=== PATIENT | male | born 1960 | race Caucasian/White ===

== ENCOUNTER → 2023-09-25 07:33 | Outpatient (REF) | payer OTHER, SELFPAY ==
[2023-09-25 07:58] VITALS: BP 162/70; BP_SYST 54
== END ==
LOC: RADI 07:33
PROVIDERS: ATTENDING PHYSICIAN Student in an Organized Health Care Education/Training Program
DX: E04.2 Nontoxic multinodular goiter (principal)
CPT/HCPCS: 88172; 88173; 10005; 88177

== ENCOUNTER 2023-11-06 20:52 | Inpatient (IN) | payer OTHER, SELFPAY ==
[2023-11-06] VITALS (7 sets, daily range): BP systolic 133–205; BP diastolic 71–109; PULSE 56–68; BMI 33.4; BMI 33.0
[2023-11-06 17:17] LABS: Glucose - Point of Care 119 mg/dl (70-99)
[2023-11-06 17:36] LABS: Glucose - Point of Care 120 mg/dl (70-99)
[2023-11-06 17:39] LABS: % Basophils 0.9 % (0-2); % Eosinophils 4.3 % (0-6); % Immature Granulocytes 0.3 % (0-0.5); % Lymphocytes 23.3 % (20.5-51.1); % Monocytes 8.5 % (1.7-9.3); % Neutrophils 62.7 % (42.2-75.2); Absolute Basophils 0.1 10^3/uL (0-0.2); Absolute Eosinophils 0.3 10^3/uL (0-0.7); Absolute Lymphocytes 1.3 10^3/uL (1.2-3.4); Absolute Monocytes 0.5 10^3/uL (0.1-0.6); Absolute Neutrophils 3.6 10^3/uL (1.4-6.5); Hemoglobin 15.3 g/dL (13.0-18.0); Mean Corpuscular Hgb 29.3 pg (27.0-31.0); Mean Platelet Volume 10.5 fL (7.4-10.4); Nucleated Red Blood Cells % 0 % (-); Platelet Count 177 10^3/uL (130-400); Red Blood Cell Count 5.23 10^6/uL (4.70-6.10); Red Cell Dist. Width 12.4 % (11.5-14.5); White Blood Cell Count 5.8 10^3/uL (4.8-10.8)
--- NOTE | 2023-11-06 17:41 | ED.CVA ---
History of Present Illness
General
Chief Complaint: CVA/TIA Symptoms
Time Seen by Provider: 11/06/23 17:35
Onset of Stroke Symptoms
Onset of symptoms known: Yes
Date of onset of symptoms: 11/06/23
Time of onset of symptoms: 16:48
Time pt last seen normal is known: Yes
Date last time pt seen normal: 11/06/23
Time last time pt seen normal: 16:47
Travel History
Have you had any contact with someone who has COVID-19?: No
Do you have any symptoms of coronavirus? Fever > 100 degrees, chills, cough, shortness of breath, sore throat, loss of taste or smell, muscle aches, or headache?: No
History of Present Illness
History of Present Illness:
Patient is a 62-year-old male with a history of hypertension as well as AVM with rupture in the past. He presents with right-sided decreased sensation that began acutely around 4:48 PM. Denies weakness. Endorses mild difficulty speaking as well.
No changes in his vision other than baseline deficits from prior bleed. Denies headache or neck pain.
Past History
Past History
ED Past Medical History: HTN and Other (kidney stone)
ED Past Surgical History: Other (brain surgery for avm)
Social History
Tobacco: Non-smoker
Alcohol: None
Drug: None
Personal:
Living: with family
Phy Exam
Physical Exam
Physical Exam:
GENERAL APPEARANCE: NAD, well developed/ well nourished
EYES lids/conjunctiva normal
EARS/NOSE/THROAT Mucous membranes moist, uvula midline without oral pharyngeal erythema, exudate or swelling
HEAD/NECK normocephalic atraumatic, neck is supple.
RESPIRATORY respiratory effort normal, speaks in full sentences, no accessory muscle use. Lungs clear to auscultation without rhonchi, wheezes, rales
CARDIAC Regular rate and rhythm, no edema.
ABDOMINAL Soft, ND/NT. No pulsatile masses on exam, rebound tenderness
MUSCLES/EXTREMITIES No abnormal range of motion, no swelling.
SKIN Warm, pink and dry. No rashes
NEUROLOGICAL Speech is clear and appropriate. Normal level of consciousness. 5/5 strength in all extremities. slightly decreased sensation to light touch to RUE/RLE, no ataxia or dysmetria, CN2-12 intact
PSYCH Normal mood and affect. Judgement/competence is appropriate
NIH Stroke Score
Level of Consciousness: 0 - Alert
LOC questions: 0-Answers both correctly
LOC Commands: 0-Performs both correctly
Best Gaze: 0-Normal
Visual Waters: 0=Normal, no visual loss
Facial palsy: 0=Normal, symmetrical
Motor - Right Arm: 0=No drift 10 seconds
Motor - Left Arm: 0=No drift 10 seconds
Motor - Right Le-No drift 5 seconds
Motor - Left Le-No drift 5 seconds
Limb Ataxia: 0-Absent
Sensation: 1-Mild loss
Best Language: 0-No aphasia
Dysarthria: 0-Normal
Extinction and Inattention: 0-No abnormality
Total Score:: 1
Alteplase Contraindication
Reasons for NON-Treatment with Thrombolytics: Hx intracranial hemorrhage (prior AVM)
Course
Orders/Labs/Results
Orders:
Orders
11/06/23 17:30
Electrocardiogram (*1) Urgent
Reason for Study: Other
Other Reason for Exam: Possible Stroke
Bedside Glucose- Treatment ONCE
Cardiac Monitoring- Treatment ONCE
Vital Signs As Directed
Frequency: Other
Weight As Directed
Frequency: Once
Comment: ZERO STRETCHER SCALE FOR ACCURATE WEIGHT
11/06/23 17:31
EKG- Treatment ONCE
11/06/23 17:32
Complete Blood Count/With Diff Urgent
Comprehensive Metabolic Panel Urgent
PTT Urgent
Prothrombin Time Urgent
Troponin I Urgent
11/06/23 17:41
CT Head W/o Cont STROKE ALERT Urgent
Comment:
Reason For Exam: stroke
11/06/23 20:11
Admit/Transfer Patient As Directed
Co-Sign Provider:
Level of Care: Inpatient admission
Assign to:: Telemetry
Physician / Group: Sher
Diagnosis: CVA
Reason for Telemetry: CVA/TIA
Date to Stop Telemetry: 11/09/23
Time to Stop Telemetry: 11:00
Reason for Hospitalization: CVA
Expected length of stay greater than two midnights?: Yes
ELOS- Estimated Length of Stay in days: 2
I certify the patient meets the requirements for IP care: Yes
Code Status As Directed
Resuscitation Status: Full Code
11/09/23 11:00
DC Protocol for Telemetry ONCE
Abnormal Lab Results
11/06/23 11/06/23 11/06/23
17:16 17:29 17:32
MPV 10.5 H fL
(7.4-10.4)
BUN 26 H mg/dl
(9-20)
Glucose 123 H mg/dl
(70-99)
POC Glucose 119 H mg/dl 120 H mg/dl
(70-99) (70-99)
11/06/23 17:32
11/06/23 17:32
Vital Signs
Initial and Last Documented VS:
Initial Vital Signs
Temp Pulse Resp BP Pulse Ox
97.7 F 75 18 205/109 98
11/06/23 17:12 11/06/23 17:12 11/06/23 17:12 11/06/23 17:12 11/06/23 17:12
Last Documented Vital Signs
Temp Pulse Resp BP Pulse Ox
97.7 F 68 18 133/80 96
11/06/23 17:12 11/06/23 18:30 11/06/23 18:30 11/06/23 18:28 11/06/23 18:30
*Critical Care Note
Total Time (30-74mins, 75-104mins- exclusive of procedures): Not Applicable
ED Attending Note
ED Attending Note
ED Attending Note:
Patient presents to the emergency department with acute onset right-sided changes in sensation as well as dysarthria that is unable to be appreciated on exam. He is not a candidate for thrombolysis given prior AVM with bleeding as well as low NIH
score (1). Stroke alert called.
CT head negative for bleeding or acute process
discussed with Neurologist operations director Dr. Butler
will admit to hospitalist for further stroke workup
-
Portions of this chart may have been created with voice recognition software.� Occasional wrong word or��sound alike� substitutions may have occurred due to the inherent limitations of voice recognition software.
Discharge Plan
Departure
Patient Disposition: Admit
Date of Disposition: 11/06/23
Time of Disposition: 19:42
Admit to: Telemetry
Admit to doctor: Sher
Presentation/result/management discussed w/ accepting MD/DO: Hospitalist
Patient with high blood pressure during this ER visit?: Yes
Condition: Good
Discharge Problem:
Focal sensory loss
Prescriptions:
No Action
lisinopril 10 MG tablet
10 mg PO DAILY
atorvastatin 10 mg tablet
10 mg PO DAILY
pantoprazole 40 mg tablet,delayed release (DR/EC)
40 mg PO DAILY
Referrals:
Neha Mena MD [Family Provider] -
Interventions
Interventions:
*Risk Screen - Suicide Last Done: 11/06/23 17:22
*General Assessment Last Done: 11/06/23 17:22
*Neglect/Abuse Screening Last Done: 11/06/23 17:22
ED- Fall Risk Assessment Last Done: 11/06/23 19:27
ED- Pulmonary Assessment Last Done: 11/06/23 19:27
ED- Neurological Assessment Last Done: 11/06/23 19:27
ED- Cardiac Assessment Last Done: 11/06/23 19:27
Discharge Date and Time
Print Language: AMERICAN
[2023-11-06 17:50] LABS: INR 0.98
[2023-11-06 17:51] LABS: ALT (SGPT) 29 U/L (0-50); APTT 31.6 Sec (23.4-35.0); AST (SGOT) 32 U/L (17-59); Albumin 4.5 g/dl (3.5-5.0); Alkaline Phosphatase 81 U/L (38-126); Blood Urea Nitrogen 26 mg/dl (9-20); Calcium 9.2 mg/dl (8.4-10.2); Carbon Dioxide 25 mmol/L (22-30); Chloride 107 mmol/L (98-107); Estimated Creatinine Clearance 79 ml/min; Glucose 123 mg/dl (70-99); Potassium 3.7 mmol/L (3.5-5.1); Sodium 138 mmol/L (135-145); Total Bilirubin 0.7 mg/dl (0.2-1.3); eGFR > 60.00
[2023-11-06 18:03] LABS: Troponin I < 0.012 ng/ml
--- NOTE | 2023-11-06 20:16 | HPS.HSE ---
Family Physician
-
Family Physician: Neha Mena MD
Chief Complaint
-
Numbness
History of Present Illness
Patient is a 62y R-handed M with PMH significant for cerebral hemorrhage / AVM who presents to ED complaining of numbness and weakness this afternoon. History obtained from patient and family at the bedside. Patient notes that he was feeling
well until about 4:30 PM today when he exited the bathroom and noted numb sensation of his lips and tongue. He did not appreciate any specific laterality to those symptoms. He also noted numbness of the R arm and hand. He states that his 'legs'
felt weak and - again - did not appreciate or cannot recall any specific laterality. He had no numbness of weakness of the LUE.
Patient contacted his and presented to the ED for further evaluation and treatment.
He states that he had some mild blurry vision. No slurred speech. No headache previously; although, he noted a mild L posterior headache during my exam.
Patient denies any recent illness or injury. No recent med changes.
He had an episode of leg weakness / collapse in the shower in June and work-up at that time was unrevealing. No similar episodes since.
Medical History
Past Medical History
Past Medical History: Reports Other
Additional Past Medical History:
AVM / Hemorrhagic CVA
Hypertension
Obesity
Dyslipidemia
GERD
Past Surgical History: Reports Other
Additional Past Surgical History:
Right Parietal Craniotomy / AMV Repair with Clip (06/29/2002) - Dr. Sanders
Social History
Tobacco: Non-smoker
Alcohol: None
Drug: None
Personal:
Living: With Family
Family History
Family History: Other (Mother: CVA / TIA Father: Prostate Cancer)
Allergies / Home Medications
Allergies reflects when Allergies were last updated in [facility].
Home Medications with original date entered in [facility]
Allergy/Medication List:
Allergies
Allergy/AdvReac Type Severity Reaction Status Date / Time
No Known Allergies Allergy Verified 05/20/19 05:40
Home Medications
lisinopril 10 mg tablet 10 mg PO DAILY 05/20/19
atorvastatin 10 mg tablet 10 mg PO DAILY 11/06/23
pantoprazole 40 mg tablet,delayed release 40 mg PO DAILY 11/06/23
Review of Systems
-
History Source: Patient
A 12 point ROS was completed and negative except as noted: Yes
Constitutional: Denies Fever, Fatigue or Chills
EENT: Denies Sore Throat
Respiratory: Denies Cough or Trouble Breathing
Cardiac: Denies Chest Pain or Palpitations
Abdomen/GI: Denies Abdominal Pain, Nausea, Vomiting or Diarrhea
: Denies Dysuria or Frequency
Musculoskeletal: Denies Joint Pain or Edema
Neurological: Reports Headache, Weakness and Numbness; Denies Dizzy
Psych: Denies Depression or Anxiety
Physical Exam
Vital Signs
Vital Signs
Temp Pulse Resp BP Pulse Ox
97.7 F 68 18 133/80 96
11/06/23 17:12 11/06/23 18:30 11/06/23 18:30 11/06/23 18:28 11/06/23 18:30
Physical Exam
General: Other (62y M in no acute distress.)
HEENT: Moist mucous membranes and PERRLA
Respiratory: Clear; No Wheezes, Rales or Rhonchi
Cardiac: S1/S2 and Regular Rhythm; No Murmur
GI: Soft, Non Tender, Non Distended and Normal Bowel Sounds
Musculoskeletal: No Clubbing, No Cyanosis and No Edema
Neuro: AO x 3 and Other (No evidence of sensory deficit by exam. Perhaps minimal strength discrepancy / weakness on the R given that he is R handed. Tongue slightly R of midline on extension.)
Psych: No Anxious or Depressed
Laboratory Results
-
11/06/23 17:32
11/06/23 17:
Laboratory Results
PT 13.0 Sec (11.4-14.6) 11/06/23 17:32
INR 0.98 11/06/23 17:32
APTT 31.6 Sec (23.4-35.0) 11/06/23:
Total Bilirubin 0.7 mg/dl (0.2-1.3) 11/06/23:32
AST 32 U/L (17-59) 11/06/23:
ALT 29 U/L (0-50) 11/06/23:
Alkaline Phosphatase 81 U/L (38-126) 11/06/23:32
Troponin I < 0.012 ng/ml 11/06/23:32
Impression/Plan
-
A/P: Patient is a 62y M with PMH significant for prior ICH secondary to AVM who presents to ED complaining of R sided numbness and weakness since this afternoon.
CVA / TIA
- Admit for further evaluation and treatment.
- Follow for changes in neurologic exam.
- Initial CT done in the ED with no acute changes.
- Check MRI / MRA in the AM.
- Note: patient has documentation from his Neurosurgeon - Dr. Luke Sanders - stating that he is OK for MRI despite clip.
- See scanned notes from 06/24/23 in [facility].
- Neuro evaluation for additional recommendations.
- Hold on ASA, etc for now given prior history.
- Continue statin.
Benign Hypertension
- BP elevated on initial arrival and improved without specific intervention.
- Continue usual lisinopril.
- Hydralazine as needed for very high BPs.
- Goal of normotension on discharge.
Obesity due to Excess Calories
- Affects all aspects of care.
- Encourage healthy diet and increased exercise with goal of weight loss.
DVT Prophylaxis: SCDs
Code Status: Full
--- NOTE | 2023-11-06 21:37 | PTCARENOTE ---
Pt transferred from ED. Pt oriented to unit, call sarah within reach. Will continue with current plan.
[2023-11-06] MEDS: TYLENOL 650 MG PO (22:08)
[2023-11-07] VITALS (8 sets, daily range): BP systolic 122–165; BP diastolic 77–90; PULSE 59–71; O2SAT 97
[2023-11-07 07:36] LABS: Hematocrit 40.9 % (39.0-52.0); Hemoglobin 14.2 g/dL (13.0-18.0); Mean Corp Hgb Conc. 34.7 g/dL (33.0-37.0); Mean Corpuscular Hgb 29.2 pg (27.0-31.0); Mean Platelet Volume 10.5 fL (7.4-10.4); Platelet Count 172 10^3/uL (130-400); Red Blood Cell Count 4.87 10^6/uL (4.70-6.10); Red Cell Dist. Width 12.5 % (11.5-14.5); White Blood Cell Count 5.1 10^3/uL (4.8-10.8)
[2023-11-07] MEDS: ZESTRIL 10 MG PO (07:43)
[2023-11-07] MEDS: PROTONIX 40 MG PO (07:43)
[2023-11-07] MEDS: LIPITOR 10 MG PO (07:43)
[2023-11-07 07:47] LABS: Blood Urea Nitrogen 24 mg/dl (9-20); Calcium 9.2 mg/dl (8.4-10.2); Carbon Dioxide 23 mmol/L (22-30); Chloride 106 mmol/L (98-107); Estimated Creatinine Clearance 86 ml/min; Glucose 102 mg/dl (70-99); HDL Cholesterol 47 mg/dl; LDL Cholesterol, Calculated 47 mg/dl; Potassium 4.3 mmol/L (3.5-5.1); Sodium 137 mmol/L (135-145); Total Cholesterol 113 mg/dl (50-199); Triglyceride 95 mg/dl (10-149); Very Low Density Lipoprotein 19 mg/dl (0-30); eGFR > 60.00
--- NOTE | 2023-11-07 08:08 | W.PN.HOSP.TC ---
Today's Communication/Plan
-
Carotid ultrasound. Echocardiogram. +/- brain MRI after neurology evaluation.
Assessment / Plan
Assessment / Plan
Physical Exam
General: Other (62y M in no acute distress.)
HEENT: Moist mucous membranes and PERRLA
Respiratory: Clear; No Wheezes, Rales or Rhonchi
Cardiac: S1/S2 and Regular Rhythm; No Murmur
GI: Soft, Non Tender, Non Distended and Normal Bowel Sounds
Musculoskeletal: No Clubbing, No Cyanosis and No Edema
Neuro: AO x 3 and Other (No evidence of sensory deficit by exam. Perhaps minimal strength discrepancy / weakness on the R given that he is R handed. Tongue slightly R of midline on extension.)
Psych: No Anxious or Depressed
A/P:
CVA / TIA
- Admited for further evaluation and treatment.
- Follow for changes in neurologic exam.
- Initial CT done in the ED with no acute changes.
- Probably MRI of the brain if neurology recommends. There has been some issues with clearance for the MRI despite below note.
- Note: patient has documentation from his Neurosurgeon - Dr. Luke Sanders - stating that he is OK for MRI despite clip.
- See scanned notes from 06/24/23 in [facility].
- Neuro evaluation for additional recommendations.
- Neurology resumed aspirin
- Continue statin.
-Will order ultrasound of carotids
-Will order echocardiogram as well
-Will follow-up neurology further recommendations
Benign Hypertension
- BP elevated on initial arrival and improved without specific intervention.
- Continue usual lisinopril.
- Hydralazine as needed for very high BPs.
- Goal of normotension on discharge.
Obesity due to Excess Calories
- Affects all aspects of care.
- Encourage healthy diet and increased exercise with goal of weight loss.
DVT Prophylaxis: SCDs
Code Status: Full
Anticipated Discharge: 24 - 48 hours
Subjective/Interval History
-
Date of Service: November 07, 2023
Patient still having some paresthesias. Denies chest pain or shortness of breath.
Objective Data
-
Labs:
Laboratory Results
11/07/23
06:39
WBC 5.1
Hgb 14.2
Hct 40.9
Plt Count 172
Sodium 137
Potassium 4.3
Chloride 106
Carbon Dioxide 23
BUN 24 H
Creatinine 1.0
Glucose 102 H
Calcium 9.2
Vital Signs:
Vital Signs
Temp Pulse Resp BP Pulse Ox
98.1 F 69 18 122/85 97
11/07/23 03:18 11/07/23 03:18 11/07/23 03:18 11/07/23 03:18 11/07/23 03:18
[2023-11-07 08:37] LABS: Glycohemoglobin (HgbA1c) 6.4 % (4.0-5.6)
--- NOTE | 2023-11-07 08:40 | CON.NEURO4 ---
Addendum entered and electronically signed by Neil Abbott MD 11/07/23 15:03:
I saw and evaluated the patient I reviewed the note by Henrietta Faustin agree with the findings the following comments:
62-year-old man with a past medical history of right parietal occipital brain AVM status postcraniotomy and clipping of the lesion, hypertension hyperlipidemia and GERD who presents to hospital with approximately 1 days worth of right hand
paresthesia as well as paresthesia on the lips and tongue, speech change and bilateral leg weakness and walking change that all seem to be an abrupt change from the day previously.
Patient reports no recent head or neck trauma he does not take any antiplatelet at baseline. Normally does not have any headaches but did have headache around 2 days ago that was nonsevere. Yesterday afternoon noted paresthesia in the lips and
tongue as well as right arm and hand paresthesia, he did not notice any overt right hand or arm weakness. He definitely thinks his gait and balance is not his normal self. He and his thinks his speech is also not normal for him. No loss of
consciousness.
Patient did have a CTA of the head in June 2023 did not show any significant vascular abnormalities and did not show any evidence for recurrence of the known right occipital lobe AVM.
Neurologic examination shows some slow speech with decreased fluency some mild dysarthria. No facial asymmetry seen, visual rice are full extraocular moods are normal. There is a very small amount of right arm pronator drift.
CT head noncontrast shows chronic changes from craniotomy and clipping after a right occipital lobe AVM.
Assessment: Based on the clinical history and subtle examination findings patient probably has had an acute ischemic stroke probably of the left hemisphere. Could be cortical or subcortical. Risk factors are hypertension and hyperlipidemia. He
has no previous history of migraines, episode is not consistent with a seizure.
Recommendations
-Pursue goal normotension maintain systolic blood pressure less than 180
-Neurologic checks and NIH stroke scale
-Aspirin 81 mg daily monotherapy
-Continue his home dose of atorvastatin 10 mg daily his LDL is less than goal of 70
-Monitor on cardiac telemetry and check transthoracic echocardiogram
-- Depending on results of echocardiogram may recommend further outpatient cardiac monitoring which is usually started with 1 to 2 weeks of Holter monitor
-Check carotid ultrasound
-Not feeling that he would need to check a repeated CTA of the head given the study in June
-Does not appear that we will be able to obtain brain MRI
-Discussed secondary stroke prevention which would mean improving diet and small amounts consistent aerobic exercise
-Speech physical Occupational Therapy evaluations
Original Note:
Consultation - Neurology 4
-
CONSULTING PHYSICIAN: Dr. Abbott
REFERRING PHYSICIAN: Dr. Olivarez
DICTATED BY: MIS Garrett
DATE/TIME OF REQUEST: 11/06/20232114
DATE/TIME OF CONSULTATION: 11/07/2023, 839
Reason for Consultation: paresthesia
History of Present Illness:
This is a 62 year old right handed male patient with a PMH significant for cerebral hemorrhage / AVM (2001) who presented to ED complaining of numbness and weakness yesterday afternoon 11/06/2023. He reported yesterday he was in his usual state
of health when he noted numbness of lips and tongue while exiting the bathroom. At that time he also noted right arm and hand numbness as well as b/l leg weakness. He also reported transient blurred vision. He reports his feels his speech is
not at baseline. He does report over the past 2 days he has had intermittent headaches. He does state this is unusual as he rarely has headaches. He has not followed with neurosurgery recently for AVM. His PCP in June wanted to perform a MRI
brain, for updated imaging. He does not have documentation of aneurysm clips, despite documentation for from Dr. Sanders he was unable to get MRI. He was able to have CTA Head. He has not had any carotid artery imaging. He does report he may have
had an MRI brain at a free standing facility, he does not remember which facility.
Today he reports symptoms have been persistent, facial and lip numbness, more on the right. He also reports right arm numbness. He denies unilateral weakness, but still does feel that balance is off. He also has noticed some mild changes in
speech. He does not take daily ASA. He does take daily Atorvastatin.
Past Medical History:
AVM / Hemorrhagic CVA
Hypertension
Obesity
Dyslipidemia
GERD
Past Surgical History:
Right Parietal Craniotomy / AMV Repair with Clip (06/29/2002) - Dr. Sanders
Family History:
Mother-stroke/TIA
Social History:
Tobacco: Non-smoker
Alcohol: None
Drug: None
Personal:
Living: With Family
Home Medications: see below
Review of Symptoms:
Patient denies any fever, chest pain, shortness of breath, GI or symptoms. Does report mild headache.
�
Vital Signs:
see below
Physical Exam:
The patient is afebrile, heart sounds S1 and S2 are regular. No dyspnea.
Neurologic Examination:
The patient is awake, alert and oriented x 3. He is able to follow commands and answer questions appropriately. There is mild delayed speech, mild dysarthria. On cranial nerve assessment, pupils are 3 mm bilateral, round and reactive to light and
accommodation. Visual rice are full. Extraocular movements are intact. Facial sensations are intact and bilaterally symmetrical, there is no facial asymmetry. Hearing is intact bilaterally to normal conversation volume. Tongue palate and uvula are
midline. Sternocleidomastoid strengths are full bilaterally. Motor strengths are 5/5 bilateral upper and lower extremities on medical research [place] scale. There is no drift or involuntary movement noted. Deep tendon reflexes are 2+ bilateral
upper and lower extremities and Babinski is absent bilaterally. Sensations of pain, touch, temperature and vibration are intact and bilaterally symmetrical. There was no extinction noted on double simultaneous stimulation. Coordination is intact by
finger to nose bilaterally.
Lab Results: see below
Neuro Imaging:
CT head 11/06/[address] evidence for acute intracranial hemorrhage or transcortical infarct.
2. 3.5 cm region of chronic encephalomalacia in the posteromedial right occipital lobe deep to a right parietal craniotomy which is likely the site of previous arteriovenous malformation surgery (unchanged from 07/11/2023).
07/12/2023-CTA head-No significant vascular occlusion, aneurysm or dissection. Stable posttreatment changes of AVM in the right occipital lobe without evidence for recurrent vascular anomaly.
Impression:
PATRICK MENDOSA is a 62 year old M who has presented to the hospital with right sided paresthesias, difficulty with balance and mild speech changes.
Differentials for the patient's presentation include:
1. acute stroke
2. migraine variant
Recommendations:
-MRI brain if possible, per patient does not have documentation of aneurysm clips-per patient may have had MRI brain since surgery in 2001
-will order repeat CT head
-reviewed CTA head with no occlusion, aneurysm or dissection
-will order CUS
-start ASA 81 mg daily
-LDL 47, continue atorvastatin 10 mg
-HgbA1c 6.4-goal normoglycemia
-goal normotension
-NIHSS and neuro checks per unit guidelines
-PT/OT and speech evaluations and treatment
-can have Tylenol for headaches as needed
Discussed patient care with patient, nursing and neurologist.
Medication and Allergies
Home Medications
Home Medications
�Medication �Instructions �Recorded
lisinopril 10 mg tablet 10 mg PO DAILY 05/20/19
atorvastatin 10 mg tablet 10 mg PO DAILY 11/06/23
pantoprazole 40 mg tablet,delayed 40 mg PO DAILY 11/06/23
release
Allergies
Allergies
Allergy/AdvReac Type Severity Reaction Status Date / Time
No Known Allergies Allergy Verified 05/20/19 05:40
Vital Signs and Labs
-
Vital Signs and Labs:
Vital Signs
Temp Pulse Resp BP Pulse Ox
97.8 F 62 18 134/78 96
11/07/23 07:30 11/07/23 07:30 11/07/23 07:30 11/07/23 07:30 11/07/23 07:30
Lab Results
11/07/23 06:39
11/07/23 06:39
PT 13.0 Sec (11.4-14.6) 11/06/23 17:32
INR 0.98 11/06/23 17:32
APTT 31.6 Sec (23.4-35.0) 11/06/23 17:32
Sodium 137 mmol/L (135-145) 11/07/23 06:39
Potassium 4.3 mmol/L (3.5-5.1) 11/07/23 06:39
BUN 24 mg/dl (9-20) H 11/07/23 06:39
Glucose 102 mg/dl (70-99) H 11/07/23 06:39
Calcium 9.2 mg/dl (8.4-10.2) 11/07/23 06:39
LDL Cholesterol, Calc 47 mg/dl 11/07/23 06:39
[2023-11-07] MEDS: ASPIR LOW (ENTERIC COATED) 81 MG PO (10:24)
--- NOTE | 2023-11-07 11:05 | PTOTSP ---
ST Acute Care Evaluation
Pt presents with some symptoms of possible TIA/CVA as indicated by persistent numbness/tingling in lips, tongue, and mouth/cheeks on right side, change in taste, as well as lingual deviation to right side upon protrusion. Nevertheless, pt presents
with oral and pharyngeal parameters that are within functional limits for safe PO intake of all consistencies.
Pt also communicated some difficulty with articulating his speech sounds as well as some cognitive fuzziness. Nevertheless, pt's speech is completely intelligible to an unfamiliar listener and pt presents with cognitive linguistic function that is
within normal limits, per the SL[facility]MS.
Recommendations:
- Continue with regular solids, thin liquids, and meds as tolerated.
- General aspiration and reflux precautions.
- No skilled [employer] LENS TECHNICIAN services needed at this time. [employer] L[employer] TECHNICIAN to sign off. Please re-consult if needed.
[2023-11-08 03:17] VITALS: BP 121/69
[2023-11-08 06:58] LABS: Hematocrit 40.8 % (39.0-52.0); Hemoglobin 14.5 g/dL (13.0-18.0); Mean Corp Hgb Conc. 35.5 g/dL (33.0-37.0); Mean Corpuscular Hgb 29.4 pg (27.0-31.0); Mean Corpuscular Volume 82.8 fL (80.0-94.0); Mean Platelet Volume 10.2 fL (7.4-10.4); Platelet Count 168 10^3/uL (130-400); Red Blood Cell Count 4.93 10^6/uL (4.70-6.10); Red Cell Dist. Width 12.3 % (11.5-14.5)
--- NOTE | 2023-11-08 07:18 | W.PN.HOSP.TC ---
Today's Communication/Plan
-
Discharge planning today.
Assessment / Plan
Assessment / Plan
Physical Exam
General: Other (62y M in no acute distress.)
HEENT: Moist mucous membranes and PERRLA
Respiratory: Clear; No Wheezes, Rales or Rhonchi
Cardiac: S1/S2 and Regular Rhythm; No Murmur
GI: Soft, Non Tender, Non Distended and Normal Bowel Sounds
Musculoskeletal: No Clubbing, No Cyanosis and No Edema
Neuro: AO x 3 and Other (No evidence of sensory deficit by exam. Perhaps minimal strength discrepancy / weakness on the R given that he is R handed. Tongue slightly R of midline on extension.)
Psych: No Anxious or Depressed
A/P:
CVA / TIA
- Appreciate neurology consult
-Unable to do MRI of the brain but repeated CT scan of the head unremarkable
- Note: patient has documentation from his Neurosurgeon - Dr. Luke Sanders - stating that he is OK for MRI despite clip.
- See scanned notes from 06/24/23 in [facility].
- Neurology recommended aspirin 81 mg daily
- Continue statin.
-Will order ultrasound of carotids and no significant stenosis
-Will order echocardiogram as well and no significant intracardiac abnormality
-Neurology recommend cardiac monitoring as outpatient
-Neurology cleared him for discharge today.
Benign Hypertension
- BP elevated on initial arrival and improved without specific intervention.
- Continue usual lisinopril.
- Hydralazine as needed for very high BPs.
- Goal of normotension on discharge.
Obesity due to Excess Calories
- Affects all aspects of care.
- Encourage healthy diet and increased exercise with goal of weight loss.
DVT Prophylaxis: SCDs
Code Status: Full
Anticipated Discharge: Today
Subjective/Interval History
-
Date of Service: November 08, 2023
Patient feels improving.
Objective Data
-
Labs:
Laboratory Results
11/08/23
06:50
WBC 7.0
Hgb 14.5
Hct 40.8
Plt Count 168
Sodium Pending
Potassium Pending
Chloride Pending
Carbon Dioxide Pending
BUN Pending
Creatinine Pending
Glucose Pending
Calcium Pending
Vital Signs:
Vital Signs
Temp Pulse Resp BP Pulse Ox
98.1 F 64 18 121/69 97
11/08/23 03:17 11/08/23 03:17 11/08/23 03:17 11/08/23 03:17 11/08/23 03:17
I&O
11/07/23 11/08/23 11/09/23
06:59 06:59 06:59
Intake Total 960 / 960
Balance 960 / 960
Review of Systems
-
All other systems: Reviewed and negative
[2023-11-08 07:35] VITALS: BP 115/71
[2023-11-08 08:41] LABS: Blood Urea Nitrogen 24 mg/dl (9-20); Calcium 9.2 mg/dl (8.4-10.2); Carbon Dioxide 25 mmol/L (22-30); Chloride 108 mmol/L (98-107); Estimated Creatinine Clearance 86 ml/min; Glucose 98 mg/dl (70-99); Potassium 4.1 mmol/L (3.5-5.1); Sodium 138 mmol/L (135-145); eGFR > 60.00
[2023-11-08] MEDS: ASPIR LOW (ENTERIC COATED) 81 MG PO (10:01)
[2023-11-08] MEDS: LIPITOR 10 MG PO (10:01)
[2023-11-08] MEDS: PROTONIX 40 MG PO (10:01)
[2023-11-08] MEDS: ZESTRIL 10 MG PO (10:01)
--- NOTE | 2023-11-08 11:27 | W.PN.NEURO.1 ---
Today's Communication / Plan
-
-Reasonable pursue 1 to 2 weeks of outpatient cardiac Holter monitoring although suspicion for cardioembolic stroke is not high
-Can continue his existing dose 10 mg atorvastatin
-Aspirin 81 mg daily
-Encourage weight loss exercise vascular health measures
-Would delay any type of endoscopy/colonoscopy that is not urgent for at least 6 to 9 months after stroke
-Anticipate he would be off of work for probably 4 weeks for recovery
-Asked that he not drive for 1 week after discharge until improved
-No further workup or monitoring felt necessary no barriers to discharge needs neurology follow-up in 4 to 6-weeks
Neuro Assessment/Plan
Assessment
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
Had around 2 days of unusual headache not typical for him as he does not get headaches hardly at all. Then had development of facial and oral paresthesia as well as paresthesia on the right arm and hand, additionally bilateral minimal lower
extremity weakness as well as walking difficulty and dysarthria.
Presumed has had a small ischemic stroke probably of the left hemisphere, could be subcortical area given no cortical signs of aphasia hemianopia or neglect, not able to entirely rule out a cortical stroke to the left hemisphere.
Not able to obtain brain MRI due to constraints around the AVM clip,
Transthoracic echocardiogram with no thrombus no significant valvular dysfunction has LVH
Carotid ultrasound not showing any significant stenosis
CTA of the head done in June did not show any intracranial stenosis or reemergence of AVM
No concern that the set of symptoms represented a seizure at the time course is not correct for such a diagnosis. Migraine would also not be an appropriate diagnosis.
Most likely etiology is probably small vessel disease or atheroembolic, less likely that this is cardioembolic stroke given largely unremarkable transthoracic echocardiogram and risk factors of hypertension hyperlipidemia and obesity.
Subjective/Objective
Subjective Data
Date of Service: November 08, 2023
No acute events, patient not feeling 100% but improving, feels speech and walking improving
Objective Data
Vital Signs
Temp Pulse Resp BP Pulse Ox
98.2 F 60 20 115/71 98
11/08/23 07:35 11/08/23 07:35 11/08/23 07:35 11/08/23 07:35 11/08/23 07:35
Lab Results
11/08/23 06:50
11/08/23 06:50
PT 13.0 Sec (11.4-14.6) 11/06/23 17:32
INR 0.98 11/06/23 17:32
APTT 31.6 Sec (23.4-35.0) 11/06/23 17:32
Sodium 138 mmol/L (135-145) 11/08/23 06:50
Potassium 4.1 mmol/L (3.5-5.1) 11/08/23 06:50
BUN 24 mg/dl (9-20) H 11/08/23 06:50
Glucose 98 mg/dl (70-99) 11/08/23 06:50
Calcium 9.2 mg/dl (8.4-10.2) 11/08/23 06:50
LDL Cholesterol, Calc 47 mg/dl 11/07/23 06:39
Patient Allergies
No Known Allergies Allergy (Verified 05/20/19 05:40)
LDL Level: <70, continue statin
Review of Systems
-
History Source: Patient
All other systems: Reviewed and negative
Constitutional: No Symptoms
EENT: No Symptoms Reported
Respiratory: No Symptoms
Cardiac: No Symptoms
Abdomen/GI: No Symptoms
Genitourinary: No Symptoms
Musculoskeletal: No Symptoms
Skin: No Symptoms
Neuro: Headache, Numbness, Ataxia and Speech Problem
Endocrine: No Symptoms
Hematologic / Lymphatic: No Symptoms
Allergy / Immunology: No Symptoms
Physical Exam
-
General: Comfortable and Appears Stated Age
Eyes: No Ptosis
HEENT: Normocephalic
Neck: No Bruits Bilaterally
Respiratory: Clear to Auscultation
Cardiac: Regular Rhythm
GI: Normal Bowel Sounds
Skin: Unremarkable
Extremities: No Clubbing
Psych: Unremarkable
Extended Neurological Exam
Mood & Affect: Mood Unremarkable and Affect Unremarkable
Attention Span & Concentration: Awake, Alert and Interactive
Memory: Unremarkable
Tremor: Hand Tremor Absent
Involuntary Movement: None
Speech: Quality Unremarkable, Quantity Unremarkable and Dysarthric; Negative Expressive Aphasia or Receptive Aphasia
Cranial Nerve II: Left Eye: Pupillary Reactivity Unremarkable, Pupillary Size Unremarkable and Visual Waters Intact
Cranial Nerve II: Right Eye: Pupillary Reactivity Unremarkable, Pupillary Size Unremarkable and Visual Waters Intact
Cranial Nerves III, IV, : Extraocular Movement: Extraocular Movement Full in all Directions
Cranial Nerve VII: Facial Symmetry: Normal Facial Symmetry
Muscle Strength, Overall: Full Throughout
Pronator Drift: Drift in Right Upper Extremity
Deep Tendon Reflexes: Trace Throughout
Cold Sensation: Unremarkable
Vibration Sensation: Unremarkable
Touch Sensation: Unremarkable
Coordination: [id number] Testing Unremarkable
Gait & Station: Up from Seated Without Problem and Other (Independent, careful); Negative Wide Based
Data Reviewed
-
CT-A: Report Reviewed and Image Reviewed
CT Head: Report Reviewed and Image Reviewed
Carotid Ultrasound: Report Reviewed
Echocardiogram: Report Reviewed
Labs: Report Reviewed
[2023-11-08 11:28] VITALS: BP 137/80; BP 143/83; PULSE 55; PULSE 61
--- NOTE | 2023-11-08 12:24 | W.DCSUMMARY ---
Discharge Summary
Discharge Data
Date of Admission: 11/06/23
Date of Discharge: 11/08/23
-
Pending Results: No
Hospital Course
Patient is 62 years old male who has history of cerebral hemorrhage in the past due to AVM status post postcraniotomy and clipping of the lesion, hypertension, hyperlipidemia presented to the hospital with right hand paresthesias and paresthesias of
the lips and tongue as well as speech difficulties and leg weakness and ataxia. Neurology was consulted. Patient's symptoms were consistent with acute stroke. He had a CT scan of the head and then repeated 24 hours later without significant
abnormalities. We were planning on doing a brain MRI but due to difficulties clearing him for that particular test and also since he was doing better neurology did not feel necessary at the moment but also unable to do. Patient had ultrasound of
carotids with no significant stenosis and also echocardiogram with no significant abnormalities intracardiac. Neurology recommended cardiac monitoring as outpatient. Otherwise, patient is neurologically improved. He participated with PT and OT
and speech pathology. Neurology cleared him for discharge today.
Discharge duration: 35 minutes
Discharge Plan
-
Patient Disposition: Home (Routine Discharge)
Discharge Diagnosis/Procedures: Acute stroke. 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 Hypertension. Dyslipidemia.
Diet: Low Cholesterol
Activity: As tolerated
Driving Restrictions: No driving for 1 week
Blood Work: Please PCP to order CBC, BMP within 1 week
Referrals:
Chaz Butler MD [Active] - in two to four weeks
Neha Mena MD [Family Provider] - in less than 1 week
Prescriptions:
New
aspirin 81 mg Tablet,Delayed Release (Dr/Ec)
81 mg PO DAILY 30 Days Qty: 30 0RF
Continued
lisinopril 10 MG tablet
10 mg PO DAILY
atorvastatin 10 mg tablet
10 mg PO DAILY
pantoprazole 40 mg tablet,delayed release (DR/EC)
40 mg PO DAILY
Discharge Orders:
Discharge Patient (As Directed); Ordered 11/08/23
Ordered By: Estiven Hassan
Discharge Date and Time
Print Language: KYRGYZ
--- NOTE | 2023-11-08 13:04 | CM ---
Met with patient at bedside; initial assessment completed
Pharmacy verified: [facility]
Patient reported he and his spouse live in a [place] with basement; 1 step to enter; 12 steps down to basement; railings on stairs; Bathroom has tub with shower
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
SNF/Rehab/Home Health utilization history: none
Transportation: or other family member will provide ride home
PT recommended outpatient therapy; [place] Text sent to Attending to request a script for outpatient PT
Plan: discharge to home today
== END 2023-11-08 14:46 | disposition home or self-care (01) | DRG 66 ==
LOC: 4 WEST ACU 20:52
PROVIDERS: ADMITTING PHYSICIAN Hospitalist; ATTENDING PHYSICIAN Hospitalist; EMERGENCY PHYSICIAN Emergency Medicine; FAMILY PHYSICIAN Student in an Organized Health Care Education/Training Program; OTHER PHYSICIAN Student in an Organized Health Care Education/Training Program
DX: I63.89 Other cerebral infarction (principal); I10 Essential (primary) hypertension; E66.09 Other obesity due to excess calories; E78.5 Hyperlipidemia, unspecified; K21.9 Gastro-esophageal reflux disease without esophagitis; Z68.33 Body mass index [BMI] 33.0-33.9, adult; Z79.899 Other long term (current) drug therapy; Z86.73 Personal history of transient ischemic attack (TIA), and cerebral infarction without residual deficits; Z82.3 Family history of stroke
CPT/HCPCS: 70450; 80048; 80053; 80061; 82962; 83036; 84484; 85025; 85027; 85610; 85730; 92523; 92610; 93005; 93306; 93880; 97162; 97167; 99285

== ENCOUNTER → 2023-12-26 09:37 | Outpatient (REF) | payer OTHER, SELFPAY | LOC: RCS 09:37 | PROVIDERS: ATTENDING PHYSICIAN Internal Medicine Cardiovascular Disease; FAMILY PHYSICIAN Student in an Organized Health Care Education/Training Program | DX: R06.09 Other forms of dyspnea (principal); E78.00 Pure hypercholesterolemia, unspecified; I10 Essential (primary) hypertension | CPT/HCPCS: 93017 ==

== ENCOUNTER → 2023-12-31 07:06 | Day surgery (SDC) | payer OTHER, SELFPAY ==
[2023-12-31 07:45] VITALS: BMI 33.8
--- NOTE | 2023-12-31 10:19 | ITS.CL.IMPLP ---
[employer] [facility] - Implant Loop
Implant Loop
Procedure Report:
Procedure: Insertion of Loop Recorder.�
Date of the procedure: 12/31/2023
Procedure Physician: John Bauer MD [facility]
Indication: Cryptogenic stroke
Description of the procedure:
Patient was brought to the holding area after informed consent was obtained from the patient. The time-out was performed immediately before the procedure.
The left parasternal chest area was prepped and draped in sterile fashion with chlorhexidine prep x 3 times. Lidocaine 1% was injected subcutaneously for local anesthesia. The loop recorder was tunneled and then injected into the subcutaneous
tissue. The tunneling tool was removed leaving the loop recorder in place. The dermis was closed with 40 monocryl suture and steristrips and a pressure Tegaderm dressing was placed. There were no immediate complications.
Post procedure, the device was interrogated and showed good detectable P and R waves.
There were no immediate complications.
Device:
LINQII; Model: [id number]; Serial #:[id number]
R wave amplitude: 0.45 mV
Final Programming:
��������������� Tachycardia Detection: >182 bpm for 16 beats
��������������� Bradycardia Detection: 30 bpm for 12 beats, Asystole for 5 seconds.
��������������� Atrial fibrillation detection: On with > 10 min duration
Conclusion:
Successful insertion of loop recorder.
Recommendation:
Routine post-insert loop care.
== END | disposition home or self-care (01) ==
LOC: CATH 07:06
PROVIDERS: ATTENDING PHYSICIAN Internal Medicine Cardiovascular Disease; FAMILY PHYSICIAN Student in an Organized Health Care Education/Training Program; OTHER PHYSICIAN Internal Medicine Cardiovascular Disease
DX: Z09 Encounter for follow-up examination after completed treatment for conditions other than malignant neoplasm (principal); Z86.73 Personal history of transient ischemic attack (TIA), and cerebral infarction without residual deficits; R06.09 Other forms of dyspnea; I10 Essential (primary) hypertension; E78.00 Pure hypercholesterolemia, unspecified; K21.9 Gastro-esophageal reflux disease without esophagitis; Z79.82 Long term (current) use of aspirin; Z79.02 Long term (current) use of antithrombotics/antiplatelets
CPT/HCPCS: 93312; 93320; 93325; 33285; C1764

== ENCOUNTER → 2024-01-22 10:08 | Outpatient (REF) | payer OTHER, SELFPAY | LOC: RAD 10:08 | PROVIDERS: ATTENDING PHYSICIAN Physician Assistant | DX: R04.2 Hemoptysis (principal) | CPT/HCPCS: 71046 ==

== ENCOUNTER → 2024-05-28 06:25 | Day surgery (SDC) | payer OTHER, SELFPAY | LOC: GI 06:25 | PROVIDERS: ATTENDING PHYSICIAN Internal Medicine Gastroenterology | DX: Z12.11 Encounter for screening for malignant neoplasm of colon (principal); K64.8 Other hemorrhoids; K57.30 Diverticulosis of large intestine without perforation or abscess without bleeding; K21.9 Gastro-esophageal reflux disease without esophagitis; R13.10 Dysphagia, unspecified; D12.2 Benign neoplasm of ascending colon; K63.5 Polyp of colon; K29.70 Gastritis, unspecified, without bleeding; Z86.0100 Personal history of colon polyps, unspecified | CPT/HCPCS: 45385; 45380; 43239; 88305; 88342 ==

== ENCOUNTER 2024-07-26 03:37 | Emergency (ER) | payer OTHER, SELFPAY ==
[2024-07-26 03:41] VITALS: BP 202/101; BMI 34.5
--- NOTE | 2024-07-26 03:43 | ED.GENMED ---
History of Present Illness
General
Chief Complaint: Chest Pain
Time Seen by Provider: 07/26/24 03:43
History of Present Illness
History of Present Illness:
TIME OF INITIAL ENCOUNTER: 3:40 AM
HPI: At about 1:40 AM, the patient was awakened by right-sided chest discomfort. He cannot qualify what it feels like other than saying that it is 'pain'. He never had any associated diaphoresis or shortness of breath. He has no exertional
symptoms. He states that he did go to a [employer] which is not normal for him this past evening. He did not take his blood pressure medication yesterday but did take his blood pressure medication early this morning.
EXAM:
GENERAL: Well appearing but in mild distress, athletic build
HEENT: Moist oral mucosa
CARDIOVASCULAR: No murmurs, normal heart rate, regular rhythm, No chest wall tenderness
PULMONARY: No respiratory distress, breath sounds are clear and equal
ABDOMEN: Soft with no peritoneal signs, no tenderness
NEUROLOGIC: Excellent strength all extremities, no coordination deficits
PSYCHIATRIC: Appropriate mental status, normal insight and judgement
EXTREMITIES: Nontender, no edema, moves all extremities equally
SKIN: No rash, no lesions
NUMBER AND COMPLEXITY OF PROBLEMS ADDRESSED AT THE ENCOUNTER
� Chronic conditions affecting care: High blood pressure and high cholesterol. History of intracranial hemorrhage related to AVM. Denies family history of premature coronary disease, denies smoking history, denies diabetes
� Acute Exacerbation and/or Progression of Chronic Illness: This is an acute problem
� Differential Diagnosis includes: GERD, ACS, costochondritis, pneumothorax, pericarditis, chest wall pain
AMOUNT AND/OR COMPLEXITY OF DATA TO BE REVIEWED AND ANALYZED
� I performed an independent evaluation of and my interpretation is:
EKG: Sinus 60, leftward axis deviation, nonspecific ST abnormality
CT: CTA chest negative for dissection, distended gallbladder with gallstones noted
X-rays: Chest x-ray unremarkable
Laboratory Studies: CBC and chemistries unremarkable, initial troponin less than 0.012
Other: I reviewed ultrasound report
� Review of other/old records: The patient was admitted here in October 2023 with right hand paresthesias
� Clinical information was obtained by an independent historian: None needed
� Prescriptions/Medications Considered but not given:
� Further testing considered but not performed:
RISK OF COMPLICATIONS AND/OR MORBIDITY OR MORTALITY OF PATIENT MANAGEMENT
� Social determinants of health affecting care: Lives at home
� Discussion with other providers: Notified workup with Dr. Kendall, covering for general surgery at 6:40 AM
� Escalation of care including admission/observation vs risk of discharge considered: Patient presents with 2 hours of chest pain on the right side. Initial EKG unremarkable. Will check troponin.
ANY OTHER UPDATES:
On reassessment at 4:20 AM, the patient appears fairly comfortable. He does have some discomfort into the back and symptoms came on suddenly and he is hypertensive�will obtain CTA to evaluate for aortic dissection.
5:15 AM: The patient was given Toradol and then started vomiting. He now feels some improvement regarding chest discomfort. He declines Zofran. CTA negative for dissection but does show distended gallbladder with gallstones. However white count
and LFTs are unremarkable. BP has improved.
6:45 AM: Appears more comfortable, doubt cardiac etiology. Biliary colic versus cholecystitis still a possibility. Also sent prescription for narcotic to his pharmacy.
Past History
Past History
ED Past Medical History: HTN and Other (kidney stone)
ED Past Surgical History: Other (brain surgery for avm)
Social History
Tobacco: Non-smoker
Alcohol: None
Drug: None
Personal:
Living: with family
Phy Exam
Physical Exam
Physical Exam:
See HPI
Scores
Heart Score for Chest Pain Patients
STEMI patient?: Not applicable
Course
Orders/Labs/Results
Orders:
Orders
07/26/24 03:38
Electrocardiogram (*1) Urgent
Reason for Study: Chest Pain
Cardiac Monitoring- Treatment ONCE
EKG- Treatment ONCE
IV Insert/Care/Rem.- Treatment PRN
O2 Therapy [RESP] Urgent
Titrate/Wean O2 to maintain O2 sat greater than (%): 90
Special Instructions: Maintain sats >/=90%
Pulse Ox/spot Check [RESP] Urgent
Quantity: 1
Special Instructions: ON ROOM AIR
07/26/24 03:49
Complete Blood Count/With Diff Urgent
Comprehensive Metabolic Panel Urgent
Lipase Urgent
Comment: ADD ON
Troponin I Urgent
07/26/24 03:50
Lisinopril [Zestril] 10 mg PO NOW STA
CR Chest - 2 Views Urgent
Comment:
Reason For Exam: R CP
07/26/24 04:05
CT Chest Angio W/wo Iv Contras Urgent
Comment:
Reason For Exam: abrupt chest / back pain high BP
07/26/24 04:55
Ketorolac [Toradol] 15 mg IV NOW STA
07/26/24 04:56
EKG- Treatment ONCE
07/26/24 05:18
US Abdomen Complete/Upper Urgent
Comment:
Reason For Exam: abnormal GB on CT
07/26/24 05:20
Add On- LAB Urgent
Tests Added?: lipase
07/26/24 06:00
Electrocardiogram (*1) Urgent
Reason for Study: Chest Pain
07/26/24 06:09
Troponin I Urgent
Abnormal Lab Results
07/26/24
03:49
Absolute Monos (auto) 0.7 H 10^3/uL
(0.1-0.6)
Lymphocytes % 17.1 L %
(20.5-51.1)
Monocytes % 10.1 H %
(1.7-9.3)
BUN 26 H mg/dl
(9-20)
Glucose 119 H mg/dl
(70-99)
07/26/24 03:49
07/26/24 03:49
Vital Signs
Blood pressure: 174/90
Initial and Last Documented VS:
Initial Vital Signs
Temp Pulse Resp BP Pulse Ox
36.9 C 60 18 202/101 99
07/26/24 03:41 07/26/24 03:41 07/26/24 03:41 07/26/24 03:41 07/26/24 03:41
Last Documented Vital Signs
Temp Pulse Resp BP Pulse Ox
36.9 C 65 25 141/93 96
07/26/24 03:41 07/26/24 06:30 07/26/24 06:30 07/26/24 06:06 07/26/24 06:30
*Critical Care Note
Total Time (30-74mins, 75-104mins- exclusive of procedures): Not Applicable
ED Attending Note
-
Portions of this chart may have been created with voice recognition software.� Occasional wrong word or��sound alike� substitutions may have occurred due to the inherent limitations of voice recognition software.
Discharge Plan
Departure
Patient Disposition: Home (Routine Discharge)
Date of Disposition: 07/26/24
Time of Disposition: 06:45
Patient with high blood pressure during this ER visit?: Yes
Discharge Problem:
Chest pain
Instructions: Gallstones, Chest Pain CBC Follow Up
Prescriptions:
New
oxycodone 5 mg tablet
5 - 10 mg PO Q6H PRN (Reason: Pain) Qty: 14 0RF
No Action
lisinopril 10 MG tablet
10 mg PO DAILY
atorvastatin 10 mg tablet
40 mg PO DAILY
pantoprazole 40 mg tablet,delayed release (DR/EC)
40 mg PO DAILY
aspirin 81 mg Tablet,Delayed Release (/Ec)
81 mg PO DAILY 30 Days Qty: 30 0RF
Referrals:
Neha Mena MD [Family Provider] -
Yuval London MD [Active] - Follow up in 2-3 days
Elpidio Cesar MD [Active] - Follow up in 2-3 days
Activity Restrictions/Additional Instructions:
I spoke to Dr. Kendall, covering for general surgery tonight. He agrees that he should be seen by general surgeon as an outpatient. I have given you the name of a local general surgeon, Dr. London. EKGs and 2 cardiac blood tests have been normal.
I also recommend he follow-up with Dr. Cesar, cardiology.
Interventions
Interventions:
*Risk Screen - Suicide Last Done: 07/26/24 03:41
*General Assessment Last Done: 07/26/24 03:41
*Neglect/Abuse Screening Last Done: 07/26/24 03:41
ED- Fall Risk Assessment Last Done: 07/26/24 04:07
*ED COVID-19 Vaccine History Last Done: 07/26/24 03:41
ED- Cardiac Assessment Last Done: 07/26/24 04:07
Discharge Date and Time
Print Language: BOLIVIAN
[2024-07-26] MEDS: ZESTRIL 10 MG PO (04:01)
[2024-07-26 04:05] LABS: % Eosinophils 4.3 % (0-6); % Immature Granulocytes 0.3 % (0-0.5); % Lymphocytes 17.1 % (20.5-51.1); % Monocytes 10.1 % (1.7-9.3); % Neutrophils 67.2 % (42.2-75.2); Absolute Basophils 0.1 10^3/uL (0-0.2); Absolute Eosinophils 0.3 10^3/uL (0-0.7); Absolute Lymphocytes 1.2 10^3/uL (1.2-3.4); Absolute Monocytes 0.7 10^3/uL (0.1-0.6); Absolute Neutrophils 4.7 10^3/uL (1.4-6.5); Hematocrit 44.1 % (39.0-52.0); Hemoglobin 15.3 g/dL (13.0-18.0); Mean Corp Hgb Conc. 34.7 g/dL (33.0-37.0); Mean Corpuscular Hgb 29.3 pg (27.0-31.0); Mean Corpuscular Volume 84.5 fL (80.0-94.0); Mean Platelet Volume 10.4 fL (7.4-10.4); Nucleated Red Blood Cells % 0 % (-); Platelet Count 158 10^3/uL (130-400); Red Blood Cell Count 5.22 10^6/uL (4.70-6.10); Red Cell Dist. Width 12.4 % (11.5-14.5)
[2024-07-26 04:20] LABS: ALT (SGPT) 41 U/L (0-50); AST (SGOT) 28 U/L (17-59); Albumin 4.5 g/dl (3.5-5.0); Alkaline Phosphatase 80 U/L (38-126); Blood Urea Nitrogen 26 mg/dl (9-20); Carbon Dioxide 30 mmol/L (22-30); Chloride 103 mmol/L (98-107); Estimated Creatinine Clearance 79 ml/min; Glucose 119 mg/dl (70-99); Potassium 3.7 mmol/L (3.5-5.1); Sodium 141 mmol/L (135-145); Total Bilirubin 0.6 mg/dl (0.2-1.3); Total Protein 6.7 g/dl (6.3-8.2); eGFR > 60.00
[2024-07-26 04:38] LABS: Troponin I < 0.012 ng/ml
[2024-07-26 04:53] VITALS: BP 197/102
[2024-07-26] MEDS: TORADOL 15 MG IV (04:59)
[2024-07-26 05:00] VITALS: BP 173/108
[2024-07-26 05:58] LABS: Lipase 108 U/L (23-300)
[2024-07-26 06:06] VITALS: BP 141/93
[2024-07-26 06:45] LABS: Troponin I < 0.012 ng/ml
[2024-07-26 07:00] VITALS: BP 146/89
== END 2024-07-26 07:22 | disposition home or self-care (01) ==
LOC: EMR 03:37
PROVIDERS: EMERGENCY PHYSICIAN Emergency Medicine; FAMILY PHYSICIAN Student in an Organized Health Care Education/Training Program
DX: R07.89 Other chest pain (principal); I10 Essential (primary) hypertension
CPT/HCPCS: 99285; 96374; 71046; 71275; 76700; 80053; 83690; 84484; 85025; 93005; Q9967

== ENCOUNTER 2024-10-31 08:16 | Emergency (ER) | payer OTHER, SELFPAY ==
[2024-10-31 08:20] VITALS: BP 109/75
--- NOTE | 2024-10-31 09:49 | ED.GENMED ---
History of Present Illness
General
Chief Complaint: Musculo-Skeletal Complaint
Source: patient
Time Seen by Provider: 10/31/24 08:51
History of Present Illness
History of Present Illness:
63-year-old male with past medical history of CVA, hypertension, hyperlipidemia presenting to the emergency department for evaluation of left-sided lower back pain and numbness to the left lateral thigh that has been gradually worsening over the
last week, today worse prompting him to come to the ER for further evaluation. Taken Tylenol intermittently with some relief but states the pain never fully subsided. Patient does state that laying flat seems to make the pain worse. 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 Patient denies any focal weakness or numbness, bowel or urinary incontinence, saddle anesthesia, fevers or infectious symptoms, abnormal weight loss
or weight gain, history of IV drug abuse or any other concerns.
Past History
Past History
ED Past Medical History: CVA, HTN and Other (kidney stone)
ED Past Surgical History: Other (brain surgery for avm)
Social History
Tobacco: Non-smoker
Alcohol: None
Drug: None
Personal:
Living: with family
Review of Systems
Review of Systems
All Other Systems: ROS reviewed and negative except as documented in HPI and ROS
Phy Exam
Physical Exam
Physical Exam:
GENERAL: Alert , in no apparent distress
HEAD: Normocephalic atraumatic
EYE: clear conjunctiva b/l
NECK: Supple
ENT: mmm.
ABDOMEN: Soft, without focal tenderness, no r/g, no cvat
BACK: Normal range of motion, generalized tenderness around the left sacroiliac region, no midline bony tenderness, no rashes
NEUROLOGICAL: Alert and oriented, no focal neuro deficits. Patellar deep tendon reflexes intact and equal bilaterally, sensation grossly intact and equal to light touch bilateral lower extremities except on the left lateral portion of the thigh
patient does report diminished sensation compared to the right. Negative straight leg raise b/l
SKIN: Warm and dry, skin intact.
MUSCULOSKELETAL: No edema, well perfused. EHL intact bilaterally
PSYCH: Normal and appropriate interaction.
Scores
Heart Failure Risk
Heart Failure Risk Score: Not Applicable
Heart Score for Chest Pain Patients
STEMI patient?: Not applicable
Withdrawal Assessment of Alcohol
Withdrawal Assessment Completed?: Not applicable
Course
Orders/Labs/Results
Orders:
Orders
10/31/24 09:22
CR Lumbar Spine Comp Min 4 Vw* Urgent
Comment:
Reason For Exam: left lower back pain
10/31/24 10:18
Ketorolac [Toradol] 60 mg IM NOW STA
Vital Signs
Initial and Last Documented VS:
Initial Vital Signs
Temp Pulse Resp BP Pulse Ox
97.6 F 75 18 109/75 98
10/31/24 08:20 10/31/24 08:20 10/31/24 08:20 10/31/24 08:20 10/31/24 08:20
Last Documented Vital Signs
Temp Pulse Resp BP Pulse Ox
97.6 F 75 18 109/75 98
10/31/24 08:20 10/31/24 08:20 10/31/24 08:20 10/31/24 08:20 10/31/24 08:20
MDM/Problems Addressed
Differential Diagnosis Includes:
Sciatica, disc herniation/nerve impingement, I do not have concern for infectious etiology
MDM/Problems Addressed:
63-year-old male presenting to the ER for evaluation of gradually worsening left lower back pain and numbness/paresthesia in the left lateral thigh. Intermittent relief with Tylenol. Pain worse today prompting him to come to the ER. Denies any
history of similar. Suspect sciatica/disc herniation/nerve impingement to be the most likely diagnoses. Explained to patient that we are unable to obtain MRI here at this facility but would be able to obtain an x-ray to further evaluate. Offered
pain medicine here in the ER but patient initially declined. Plan to initiate patient on a steroid taper, muscle relaxant and anti-inflammatories at home. Recommend close follow-up with orthopedist/pain management for further evaluation and
potential treatment. May require physical therapy or other intervention for additional pain relief.
*Radiology
Radiology exam reviewed: preliminary read by ED provider (Degenerative changes most pronounced from L4-S1)
*Pulse Oximetry
Patient hypoxic: no
*Critical Care Note
Total Time (30-74mins, 75-104mins- exclusive of procedures): Not Applicable
Patient Management
Escalation/DeEscalation of care consider admission/obs:
X-ray with degenerative changes at L4 and L5, L5 and S1. Discussed these results with patient's and encouraged the patient to follow-up with primary care provider as well as provided with information for Ortho and pain management. Medications for
sciatica/radiculopathy provided including a Medrol Dosepak and muscle relaxer. Patient aware of return precautions to the ER.
ED Attending Note
-
Portions of this chart may have been created with voice recognition software.� Occasional wrong word or��sound alike� substitutions may have occurred due to the inherent limitations of voice recognition software.
Discharge Plan
Departure
Patient Disposition: Home (Routine Discharge)
Date of Disposition: 10/31/24
Time of Disposition: 10:15
Patient with high blood pressure during this ER visit?: No
Discharge Problem:
Acute left lumbar radiculopathy
Instructions: Low back pain - Discharge instructions
Prescriptions:
New
methylprednisolone [Medrol (Ra)] 4 mg tablets,dose pack
4 mg PO DIRECTED Qty: 21 0RF
baclofen 10 mg tablet
10 mg PO BID Qty: 10 0RF
No Action
lisinopril 10 MG tablet
10 mg PO DAILY
atorvastatin 10 mg tablet
40 mg PO DAILY
pantoprazole 40 mg tablet,delayed release (DR/EC)
40 mg PO DAILY
aspirin 81 mg Tablet,Delayed Release (Dr/Ec)
81 mg PO DAILY 30 Days Qty: 30 0RF
oxycodone 5 mg tablet
5 - 10 mg PO Q6H PRN (Reason: Pain) Qty: 14 0RF
Referrals:
Jc Lopez MD [Active] - (Pain Management)
Britany Castillo DO [Active] - (Ortho)
Neha Mena MD [Family Provider] -
Interventions
Interventions:
*Risk Screen - Suicide Last Done: 10/31/24 08:20
*General Assessment Last Done: 10/31/24 10:53
*Neglect/Abuse Screening Last Done: 10/31/24 10:53
*ED- Fall Risk Assessment Last Done: 10/31/24 10:53
*ED COVID-19 Vaccine History Last Done: 10/31/24 10:53
*Nursing Disposition Last Done: 10/31/24 10:54
ED-Musculoskeletal Assessment Last Done: 10/31/24 10:52
Discharge Date and Time
Discharge Date/Time: 10/31/24 10:54
Print Language: LEBANESE
[2024-10-31] MEDS: TORADOL 60 MG IM (10:35)
== END 2024-10-31 10:54 | disposition home or self-care (01) ==
LOC: EMR 08:16
PROVIDERS: EMERGENCY PHYSICIAN Emergency Medicine; FAMILY PHYSICIAN Student in an Organized Health Care Education/Training Program
DX: M54.16 Radiculopathy, lumbar region (principal); I10 Essential (primary) hypertension; Z86.73 Personal history of transient ischemic attack (TIA), and cerebral infarction without residual deficits
CPT/HCPCS: 96372; 99284; 72110

== ENCOUNTER → 2024-12-22 11:00 | Outpatient (REF) | payer OTHER, SELFPAY | LOC: RAD 11:00 | PROVIDERS: ATTENDING PHYSICIAN Student in an Organized Health Care Education/Training Program | DX: E04.1 Nontoxic single thyroid nodule (principal) | CPT/HCPCS: 76536 ==

== ENCOUNTER → 2025-02-15 12:26 | Outpatient (REF) | payer OTHER, SELFPAY | LOC: RAD 12:26 | PROVIDERS: ATTENDING PHYSICIAN Student in an Organized Health Care Education/Training Program | DX: M54.32 Sciatica, left side (principal); M54.31 Sciatica, right side | CPT/HCPCS: 70030 ==